=== PATIENT | male | born 1985 | race Caucasian/White ===

== ENCOUNTER 2020-05-29 13:02 | Emergency (ER) | payer OTHER ==
[2020-05-29 14:57] LABS: HEMOGLOBIN 13.8 gm/dl (14.0-17.5); RED BLOOD COUNT 4.49 M/UL (4.20-5.50); WHITE BLOOD COUNT 6.1 K/UL (4.5-11.0)
[2020-05-29 15:20] LABS: BUN/CREATININE RATIO 16 (0-10)
[2020-05-29] MEDS ORDERED: ZOFRAN ODT 4 MG4 MG PO (21:53)
[2020-05-29] MEDS ORDERED: HYDROXYZINE HCL10 MG PO (21:53)
[2020-05-29] MEDS ORDERED: LODINE CAP 300300 MG PO (21:53)
[2020-06-01 03:11] LABS: HBSAG SCREEN Positive (Negative); HEP A AB, IGM Negative (Negative); HEP B CORE AB, IGM Positive (Negative); HEP C VIRUS AB <0.1 (0.0-0.9)
== END 2020-05-29 22:10 | disposition home or self-care (01) ==
LOC: ER1 13:02
PROVIDERS: Physician Assistant
DX: B17.9 Acute viral hepatitis, unspecified (principal); F17.210 Nicotine dependence, cigarettes, uncomplicated; Z88.0 Allergy status to penicillin; Z20.822 Contact with and (suspected) exposure to COVID-19
CPT/HCPCS: 80053; 80074; 80307; 81001; 82550; 82553; 83874; 84484; 85025; 85610; 85730; 87081; 87880; 99284; J7030; Q9967; U0002